=== PATIENT | male | born 1980 | race Caucasian/White ===

== ENCOUNTER 2020-10-25 10:17 | Emergency (ER) | payer SELFPAY ==
--- NOTE | ~2020-10-25 | CT_ITS ---
EXAMINATION: CT abdomen pelvis w con DATE: 10/25/2020 12:29 INDICATION: Appendicitis with 5 days of mid and lower abdominal pain TECHNIQUE: Computed tomography (CT) of the abdomen and pelvis was performed with 100 mL Omnipaque-350 intravenous contrast. Extra dose Albaro The dose-length product was 494.02 mGy-cm. COMPARISON: None FINDINGS: Lung bases are clear. Heart size is normal. No pericardial or pleural effusion. Liver, gallbladder, s pleen, pancreas, bilateral adrenal glands and left kidney are normal. A couple right renal cysts giorgio uring up to 1.6 cm maximal diameter. Normal retrocecal appendix. No abnormal bowel wall thickening or obstruction. Partially decompressed bladder is normal. No free intraperitoneal gas or fluid. No path ologically enlarged abdominal or pelvic lymphadenopathy. Sacralized L5 segment. IMPRESSION: 1. Normal appendix. No acute intra-abdominal/pelvic process. Reviewed, dictated and finalized at location A.
[2020-10-25 11:24] VITALS: BP 127/73; PULSE 66; RESP 18; TEMP 36.4; O2SAT 100
[2020-10-25] MEDS: FAMOTIDINE 20 MG/2 ML VIAL IV PUSH (11:53)
[2020-10-25] MEDS: ONDANSETRON INJ 4 MG/2 ML VIAL IV PUSH (11:55)
[2020-10-25] MEDS: SODIUM CHLORIDE 0.9% IV 1,000 ML 999 ML IV CONT (11:58)
[2020-10-25 12:09] LABS: Basophils Absolute Auto 0.1 K/mm3 (0.0-0.1); Basophils Percent Auto 0.6 % (0.2-1.2); Eosinophils Absolute Auto 0.3 K/mm3 (0-0.3); Eosinophils Percent Auto 3.7 % (0-4.4); Hematocrit 44.5 % (42.0-52.0); Hemoglobin 14.8 g/dL (14.0-18.0); Immature Granulocyte Absolute 0.03 K/mm3 (0.00-0.031); Immature Granulocyte Percent A 0.3 % (0-0.5); Lymphocytes Absolute Auto 2.84 K/mm3 (0.9-3.2); Lymphocytes Percent Auto 31.9 % (18.3-44.2); Mean Corpuscular HGB Conc 33.3 g/dl (32-36); Mean Corpuscular Hemoglobin 31.5 pg (26-34); Mean Corpuscular Volume 94.7 fl (80-100); Mean Platelet Volume 10.6 fl (7.4-10.4); Monocytes Percent Auto 11.6 % (2.6-8.5); Neutrophils Absolute Auto 4.6 K/mm3 (1.3-6.7); Neutrophils Percent Auto 51.9 % (45.5-73.1); Platelet Count Result 210 k/mm3 (150-375); Red Cell Distribution Width 12.5 % (11.5-14.5); White Blood Count 8.9 K/mm3 (4.5-10.0)
[2020-10-25 12:14] LABS: Add Urine Microscopic? YES; Appearance Urine Clear (Clear); Bilirubin Urine Negative (Negative); Blood Urine 2+ (Negative); Color Urine Yellow (Yellow); Glucose Urine UA Negative (Negative); Ketones Urine Negative (Negative); Leukocyte Esterase Ur Negative LEU/UL (Negative); Mucus Urine Few /lpf; Nitrate Urine Negative (Negative); Protein Urine 1+ mg/dL (Negative); Specific Grav Ur 1.029 (1.001-1.035); Squamous Epithelial Cell Urine Rare /hpf (Few); Urobilinogen Urine Negative mg/dL (<2.0); WBC Urine 0-3 /hpf
[2020-10-25 12:18] LABS: Alanine Aminotransferase 20 U/L (4-50); Albumin Level 4.6 g/dL (3.5-5.1); Alkaline Phosphatase 68 U/L (38-126); Anion Gap 5 mmol/L (8-16); Aspartate Amino Transferase 29 U/L (17-59); Bilirubin,Total 0.6 mg/dL (0.2-1.3); Blood Urea Nitrogen 19 mg/dL (9-20); Calcium 9.8 mg/dL (8.4-10.2); Carbon Dioxide 28 mmol/L (22-30); Chloride 105 mmol/L (98-107); Estimated CRCL calculation 77 ml/min; Estimated Glomerular Filt Rate > 60; Glucose 96 mg/dL (75-110); Lipase 79 U/L (23-300); Potassium 4.5 mmol/L (3.4-5.0); Sodium 138 mmol/L (137-145)
[2020-10-25 13:00] VITALS: BP 126/81; PULSE 63; O2SAT 100
--- NOTE | 2020-10-25 13:23 | ED.GENADULT ---
HPI - General Adult General Chief complaint: Abdominal Pain Stated complaint: abd pain Time Seen by Provider: 10/25/20 11:16 Source: patient, family and RN notes reviewed Mode of arrival: ambulatory Limitations: no limitations History of Present Illness HPI narrative: Patient is a 40-year-old male who presents to emergency department for evaluation of abdominal pain that was from the epigastrium down into the periumbilical region and radiated to the right also noting some posterior back pain that been present for a couple of days patient notes some chills and nausea has not taken anything for his pain presents with family in no distress denies injury or trauma or similar occurrence patient notes that he is otherwise been fine and is a healthy individual Related Data Allergies Allergy/AdvReac Type Severity Reaction Status Date / Time No Known Allergies Allergy Verified 10/25/20 11:52 Review of Systems Review of Systems: All systems reviewed & are unremarkable except as noted in HPI and below PMFSH Social History Social History (Updated 10/25/20 @ 13:24 by Geovanni Ivey PA-C) Smoking status: Never smoker Gender identity (if verbalized by the patient): Male Exam Narrative: Exam Narrative: GENERAL: Well-appearing, well-nourished, and in no acute distress. HEAD: Normocephalic, atraumatic. EYES: PERRLA and EOMI. ENT: Nares clear, no rhinorrhea or epistaxis. Mucous membranes moist. CHEST: Clear to auscultation. No respiratory distress. No wheezes rales or rhonchi HEART: Regular rate and rhythm. No murmur heard. Normal peripheral pulses. ABDOMEN: Soft, periumbilical and right lower quadrant tenderness to palpation, nondistended, normal active bowel sounds. EXTREMITIES: Normal range of motion. No edema. SKIN: Warm, dry, no rash. NEURO: No focal deficits. Alert and oriented x3. Normal speech and gait PSYCH: Normal mood and affect. Course Course Emergency Course: Patient was evaluated for abdominal pain and back pain there is no high risk changes in the evaluation patient notes that he does do frequent lifting at work and possibly could have strained his back and abdomen patient will be treated accordingly and discharged home with follow-up with primary care and has been given reasons to return and agrees with this plan Vital Signs Vital signs: Vital Signs Temperature 97.5 F L 10/25/20 11:24 Pulse Rate 66 10/25/20 11:24 Respiratory Rate 18 10/25/20 11:24 Blood Pressure 127/73 10/25/20 11:24 Pulse Oximetry 100 10/25/20 11:24 Temperature 97.5 F L 10/25/20 11:24 Pulse Rate 66 10/25/20 11:24 Respiratory Rate 18 10/25/20 11:24 Blood Pressure 127/73 10/25/20 11:24 Pulse Oximetry 100 10/25/20 11:24 Medical Decision Making MDM Narrative Medical decision making narrative: Patient hemodynamically stable ABCs and vital signs intact and stable no high risk changes in the imaging or blood work. Patient could be having referred pain from a strain there is no other concerning findings at this time he is nontoxic-appearing and agrees with outpatient follow-up and will return if symptoms worsen Vital Signs Vital Signs: Vital Signs Temperature 97.5 F L 10/25/20 11:24 Pulse Rate 66 10/25/20 11:24 Respiratory Rate 18 10/25/20 11:24 Blood Pressure 127/73 10/25/20 11:24 Pulse Oximetry 100 10/25/20 11:24 Temperature 97.5 F L 10/25/20 11:24 Pulse Rate 66 10/25/20 11:24 Respiratory Rate 18 10/25/20 11:24 Blood Pressure 127/73 10/25/20 11:24 Pulse Oximetry 100 10/25/20 11:24 Lab Data Result diagrams: 10/25/20 12:00 10/25/20 12:00 Labs: Lab Results 10/25/20 10/25/20 10/25/20 Range/Units 12:00 12:00 12:00 WBC 8.9 (4.5-10.0) K/mm3 RBC 4.70 (4.6-6.20) M/mm3 Hgb 14.8 (14.0-18.0) g/dL Hct 44.5 (42.0-52.0) % MCV 94.7 (80-100) fl MCH 31.5 (26-34) pg MCHC 33.3 (32-36) g/dl RDW 12.5 (11.5-14
== END 2020-10-25 13:41 | disposition home or self-care (01) ==
PROVIDERS: Emergency Medicine Emergency Medical Services; Emergency Provider Emergency Medicine
DX: R10.13 Epigastric pain (principal); M54.9 Dorsalgia, unspecified
CPT/HCPCS: 36415; 74177; 80053; 81001; 83690; 85025; 96361; 96365; 96375; 99284; J0131; J2405; J7030; Q9967

== ENCOUNTER 2020-11-13 10:12 | Emergency (ER) | payer SELFPAY ==
[2020-11-13 10:27] VITALS: BP 105/88; PULSE 66; RESP 18; TEMP 36.4; O2SAT 99
[2020-11-13 10:44] VITALS: BP 130/92; PULSE 71; RESP 14; TEMP 36.4; O2SAT 96
--- NOTE | 2020-11-13 11:39 | ED.GENADULT ---
HPI - General Adult General Chief complaint: Skin/Abscess/Foreign Body <Geovanni Ivey PA-C - Last Filed: 11/13/20 11:47> Stated complaint: WHOLE BODY ITCHING <Geovanni Ivey PA-C - Last Filed: 11/13/20 11:47> Time Seen by Provider: 11/13/20 10:52 <Geovanni Ivey PA-C - Last Filed: 11/13/20 11:47> Source: patient and RN notes reviewed <Geovanni Ivey PA-C - Last Filed: 11/13/20 11:47> Mode of arrival: ambulatory <ALICIA Zuluaga Last Filed: 11/13/20 11:47> Limitations: no limitations <Geovanni Ivey PA-C - Last Filed: 11/13/20 11:47> History of Present Illness HPI narrative: Patient is a 40-year-old male who presents to emergency department for evaluation of itching that has been diffuse for the last 4 days denies known exposures or contacts denies family members with similar occurrence on arrival to emergency department is in no distress also notes difficulty hearing from the left ear denies similar occurrence in the past <Geovanni Ivey PA-C - Last Filed: 11/13/20 11:47> Related Data Allergies/adverse reactions: Allergies Allergy/AdvReac Type Severity Reaction Status Date / Time No Known Allergies Allergy Verified 10/25/20 11:52 <Geovanni Ivey PA-C - Last Filed: 11/13/20 11:47> Review of Systems Review of Systems: All systems reviewed & are unremarkable except as noted in HPI and below <Geovanni Ivey PA-C - Last Filed: 11/13/20 11:47> PMFSH Social History Social History: Social History Smoking status: Never smoker Gender identity (if verbalized by the patient): Male <ALICIA Zuluaga Last Filed: 11/13/20 11:47> Exam Narrative: Exam Narrative: GENERAL: Well-appearing, well-nourished, and in no acute distress. HEAD: Normocephalic, atraumatic. EYES: PERRLA and EOMI. ENT: Nares clear, no rhinorrhea or epistaxis. Mucous membranes moist. Oropharynx without tonsillar hypertrophy exudate or other lesions. Left cerumen impaction CHEST: Clear to auscultation. No respiratory distress. No wheezes rales or rhonchi HEART: Regular rate and rhythm. No murmur heard. EXTREMITIES: Normal range of motion. No edema. SKIN: Warm, dry, no rash. Excoriations noted from itching on the extremities and torso NEURO: No focal deficits. Alert and oriented x3. PSYCH: Normal mood and affect. <Geovanni Ivey PA-C - Last Filed: 11/13/20 11:47> Course Course Emergency Course: Patient presented with multiple complaints will be referred to ENT and primary care feels comfortable with this plan afebrile nontoxic-appearing no distress <Geovanni Ivey PA-C - Last Filed: 11/13/20 11:47> Vital Signs Vital signs: Vital Signs Temperature 36.4 C 11/13/20 10:27 Pulse Rate 66 11/13/20 10:27 Respiratory Rate 18 11/13/20 10:27 Blood Pressure 105/88 11/13/20 10:27 Pulse Oximetry 99 11/13/20 10:27 Temperature 36.4 C 11/13/20 10:44 Pulse Rate 71 11/13/20 10:44 Respiratory Rate 14 11/13/20 10:44 Blood Pressure 130/92 H 11/13/20 10:44 Pulse Oximetry 96 11/13/20 10:44 <Geovanni Ivey PA-C - Last Filed: 11/13/20 11:47> Vital Signs Temperature 36.4 C 11/13/20 10:27 Pulse Rate 66 11/13/20 10:27 Respiratory Rate 18 11/13/20 10:27 Blood Pressure 105/88 11/13/20 10:27 Pulse Oximetry 99 11/13/20 10:27 Temperature 36.4 C 11/13/20 10:44 Pulse Rate 71 11/13/20 10:44 Respiratory Rate 14 11/13/20 10:44 Blood Pressure 130/92 H 11/13/20 10:44 Pulse Oximetry 96 11/13/20 10:44 <Susana Palm MD - Last Filed: 11/13/20 13:06> Medical Decision Making MDM Narrative Medical decision making narrative: Patient will be referred to ENT for his cerumen impaction will be treated with antihistamines for his itching and referred to primary care <Geovanni Ivey PA-C - Last Filed: 11/13/20 11:47> Vital Signs Mercedes
== END 2020-11-13 12:13 | disposition home or self-care (01) ==
PROVIDERS: Emergency Provider Emergency Medicine
DX: R21 Rash and other nonspecific skin eruption (principal); H61.22 Impacted cerumen, left ear
CPT/HCPCS: 99283